=== PATIENT | male | born 1990 ===

== ENCOUNTER 2017-12-09 08:44 | Observation (INO) | payer BC ==
[2017-12-09 09:40] LABS: BASO % 0.5 % (0.0-2.0); EOS # 0.2 K/uL (0.0-0.7); EOS % 2.6 % (0.0-4.0); HEMOGLOBIN 15.4 g/dL (12.0-18.0); LYMPH # 1.3 K/uL (1.0-4.3); LYMPH % 20.6 % (20.0-40.0); MEAN CORPUSCULAR HEMOGLOBIN 28.6 pg (27.0-31.0); MEAN CORPUSCULAR HGB CONC 34.5 g/dL (33.0-37.0); MEAN PLATELET VOLUME 9.1 fl (7.2-11.7); MONO # 0.5 K/uL (0.0-0.8); MONO % 7.5 % (0.0-10.0); NEUT # 4.4 K/uL (1.8-7.0); NEUT % 68.8 % (50.0-75.0); RBC 5.39 Mil/uL (4.40-5.90); RED CELL DISTRIBUTION WIDTH 14.7 % (11.5-14.5); WHITE BLOOD COUNT 6.4 K/uL (4.8-10.8)
[2017-12-09 09:48] LABS: ALB/GLOB RATIO 1.2 (1.0-2.1); ALBUMIN 4.3 g/dL (3.5-5.0); ALT/SGPT 53 U/L (21-72); AST/SGOT 25 U/L (17-59); BLOOD UREA NITROGEN 17 mg/dl (9-20); CALCIUM 9.9 mg/dL (8.4-10.2); GFR NON-AFRICAN AMERICAN > 60
[2017-12-09 10:56] VITALS: BMI 34.4
[2017-12-09] MEDS ORDERED: Tdap Vaccine 0.5 ml Vial (10-64 yrs) IM ONE (12:04)
[2017-12-09] MEDS ORDERED: Dextrose 5%/0.45% NS 1,000 ML IV SCH (12:45)
--- NOTE | 2017-12-09 13:51 | CP.PCM.HP ---
History of Present Illness - History of Present Illness History of Present Illness: Hand Surgery: Dr. Nur Pt is a 27M with no PMHx who presents to [facility] with complaints of R hand pain and swelling x 3 days. Pt states that he was moving some heavy glass on Friday when it fell out of his hands and lacerated his R fifth digit. He states the cut was small but deep, however he applied some pressure to stop the bleeding and it got better.Yesterday, pt tripped and tried to stop the fall with his R hand by grabbing a tree branch. He states he felt a sharp pain in the same finger. Overnight the pain got worse with increased swelling and pt was unable to fully bend his 5th digit so he came to the ER. He admits to having a fracture in the same 5th digit 5 yrs ago which required pinning. In the ER, pt had an X-ray of his R hand and hand surgery called to evaluate. Currently, he is resting comfortably. States his pain is located along the 5th digit of the R hand extending down the ulnar side. He states he is able to move all his fingers but can't fully bend his 5th digit. Denies any other complaints at this time. Denies fevers/chills, chest pain or SOB. PMHx: denies PSHx: pinning of R 5th digit fracture SocialHx: denies smoking/drugs, social EtOH NKDA Present on Admission - Present on Admission Any Indicators Present on Admission: No Review of Systems - Review of Systems All systems: reviewed and no additional remarkable complaints except (as per HPI) Past Patient History - Past Social History Smoking Status: Never Smoked Alcohol: Social Drugs: Denies - PSYCHIATRIC Hx Substance Use: No - SURGICAL HISTORY Hx Surgeries: Yes - ANESTHESIA Hx Anesthesia: No Meds Allergies/Adverse Reactions: Allergies Allergy/AdvReac Type Severity Reaction Status Date / Time No Known Allergies Allergy Verified 12/09/17 09:12 Physical Exam - Constitutional Appears: Well, No Acute Distress - Head Exam Head Exam: ATRAUMATIC, NORMOCEPHALIC - Eye Exam Eye Exam: Normal appearance - ENT Exam ENT Exam: Mucous Membranes Moist - Respiratory Exam Respiratory Exam: NORMAL BREATHING PATTERN - Cardiovascular Exam Cardiovascular Exam: RRR - GI/Abdominal Exam GI & Abdominal Exam: Soft - Extremities Exam Additional comments: R hand: minimal swelling noted along the base of the 5th digit, small healed laceration scar noted without any erythema, fluctuance or induration on the volar aspect at the base. Decreased active flexion/extension of the PIP joint of 5th digit, and tenderness on passive extension. No sensory deficits noted. Remainder of the exam normal. 2+ distal pulses b/l - Neurological Exam Neurological exam: Alert, Oriented x3 - Skin Skin Exam: Dry, Warm Results - Vital Signs Recent Vital Signs: Last Vital Signs Temp 97.1 F L 12/09/17 09:15 Pulse 86 12/09/17 09:15 Resp 18 12/09/17 09:15 BP 137/87 12/09/17 09:15 Pulse Ox 100 12/09/17 09:15 - Labs Result Diagrams: 12/09/17 09:30 12/09/17 09:30 Labs: Laboratory Results - last 24 hr 12/09/17 12/09/17 09:30 09:30 WBC 6.4 RBC 5.39 Hgb 15.4 Hct 44.7 MCV 83.0 MCH 28.6 MCHC 34.5 RDW 14.7 H Plt Count 181 MPV 9.1 Neut % (Auto) 68.8 Lymph % (Auto) 20.6 [place] % (Auto) 7.5 Eos % (Auto) 2.6 Baso % (Auto) 0.5 Neut # (Auto) 4.4 Lymph # (Auto) 1.3 [place] # (Auto) 0.5 Eos # (Auto) 0.2 Baso # (Auto) 0.0 Sodium 140 Potassium 4.7 Chloride 105 Carbon Dioxide 31 H Anion Gap 9 L BUN 17 Creatinine 0.9 Est GFR ( Amer) > 60 Est GFR (Non-Af Amer) > 60 Random Glucose 95 Calcium 9.9 Total Bilirubin 0.4 AST 25 ALT 53 Alkaline Phosphatase 94 Total Protein 7.8 Albumin 4.3 Globulin 3.5 Albumin/Globulin Ratio 1.2 - Imaging and Cardiology R hand X-ray Status: Image reviewed by me Assessment & Plan - Assessment and Plan (Free Text) Assessment: 27M with injury to the R hand, 5th digit. r/o fracture vs tendon injury Plan: - admit for observation - IV ABX Unasyn & Vanc - Keep NPO - Keep R hand/arm elevated - Dr. Nur to evaluate and assess need for OR James
--- NOTE | 2017-12-09 14:04 | RAD ---
PROCEDURE: Right hand and 5th digit radiographs. HISTORY: Evaluate for 5th digit foreign body COMPARISON: None. FINDINGS: BONES: No acute fracture. JOINTS: Remarkable. SOFT TISSUES: Normal. OTHER FINDINGS: None. IMPRESSION: No demonstrated fracture, dislocation or evidence of radiopaque foreign body.
[2017-12-10] MEDS: Sodium Chloride 0.9% 1,000 ML IV SCH ×3 (01:15→09:24)
[2017-12-10] MEDS ORDERED: Gadodiamide 287 MG/ML VIAL (15ML) IV ONE (10:51)
--- NOTE | 2017-12-10 10:52 | CP.PCM.PN ---
Subjective - Date & Time of Evaluation Date of Evaluation: 12/10/17 Time of Evaluation: 10:48 - Subjective Subjective: Hand Surgery: Dr. Nur Pt seen and examined. No acute overnight events. Pt states he feels ok this morning and continues to have some pain around his R pinky finger. He denies any other complaints. Denies fevers/chills. Objective - Vital Signs/Intake and Output Vital Signs (last 24 hours): Temp Pulse Resp BP Pulse Ox 98.3 F 81 20 125/80 99 12/10/17 08:19 12/10/17 08:19 12/10/17 08:19 12/10/17 08:19 12/10/17 08:19 - Medications Medications: Current Medications Acetaminophen (Tylenol 325mg Tab) 650 mg PO Q4 PRN PRN Reason: Pain, Mild (1-3) Last Admin: 12/09/17 17:18 Dose: 650 mg Ampicillin Sodium/Sulbactam (Sodium 3 gm/ Sodium Chloride) 100 mls @ 100 mls/hr IVPB Q6 JAMAR; Protocol Last Admin: 12/10/17 09:24 Dose: 100 mls/hr Dextrose/Sodium Chloride (Dextrose 5%/0.45% Ns 1000 Ml) 1,000 mls @ 125 mls/hr IV .Q8H JAMAR Stop: 12/10/17 12:40 Sodium Chloride (Sodium Chloride 0.9%) 1,000 mls @ 125 mls/hr IV .Q8H JAMAR Stop: 12/10/17 17:03 Last Admin: 12/10/17 09:24 Dose: 125 mls/hr Tramadol HCl (Ultram) 50 mg PO Q6 PRN PRN Reason: Pain, moderate (4-7) - Labs Labs: 12/09/17 09:30 12/09/17 09:30 - Constitutional Appears: Well, No Acute Distress - Head Exam Head Exam: ATRAUMATIC, NORMOCEPHALIC - Eye Exam Eye Exam: Normal appearance - ENT Exam ENT Exam: Mucous Membranes Moist - Respiratory Exam Respiratory Exam: NORMAL BREATHING PATTERN - Cardiovascular Exam Cardiovascular Exam: RRR - GI/Abdominal Exam GI & Abdominal Exam: Soft - Extremities Exam Additional comments: R hand with swelling around the base of the 5th digit, +ttp on passive and active extension > flexion. - Neurological Exam Neurological Exam: Alert, Awake, Oriented x3 - Skin Skin Exam: Dry, Warm Assessment and Plan - Assessment and Plan (Free Text) Assessment: 27M with R 5th digit injury r/o tendon injury Plan: - f/u MRI to r/o tendon injury - Keep NPO in case pt needs OR intervention - pain management - IV ABX - d/w Dr. Boom Ramirez
[2017-12-11] MEDS ORDERED: Povidone Iodine Topical 10% Sol ONE (08:41)
--- NOTE | 2017-12-11 10:35 | CP.PCM.PN ---
Subjective - Date & Time of Evaluation Date of Evaluation: 12/11/17 Time of Evaluation: 10:33 - Subjective Subjective: Hand Surgery: Dr. Nur Pt seen and examined. No acute overnight events. States he is feeling a lot better but continues to have pain in the R 5th digit brianne around the base. Denies any fevers/chills. Tolerating diet/ambulating. Objective - Vital Signs/Intake and Output Vital Signs (last 24 hours): Temp Pulse Resp BP Pulse Ox 97.8 F 66 20 137/83 97 12/11/17 08:47 12/11/17 08:47 12/11/17 08:47 12/11/17 08:47 12/11/17 08:47 - Medications Medications: Current Medications Acetaminophen (Tylenol 325mg Tab) 650 mg PO Q4 PRN PRN Reason: Pain, Mild (1-3) Last Admin: 12/09/17 17:18 Dose: 650 mg Ampicillin Sodium/Sulbactam (Sodium 3 gm/ Sodium Chloride) 100 mls @ 100 mls/hr IVPB Q6 JAMAR; Protocol Last Admin: 12/11/17 09:34 Dose: 100 mls/hr Vancomycin HCl 1 gm/ Sodium (Chloride) 250 mls @ 166.667 mls/hr IVPB Q12H JAMAR; Protocol Last Admin: 12/11/17 02:30 Dose: 166.667 mls/hr Tramadol HCl (Ultram) 50 mg PO Q6 PRN PRN Reason: Pain, moderate (4-7) - Labs Labs: 12/09/17 09:30 12/09/17 09:30 - Constitutional Appears: Well, No Acute Distress - Head Exam Head Exam: ATRAUMATIC, NORMOCEPHALIC - ENT Exam ENT Exam: Mucous Membranes Moist - Respiratory Exam Respiratory Exam: NORMAL BREATHING PATTERN - Cardiovascular Exam Cardiovascular Exam: RRR - GI/Abdominal Exam GI & Abdominal Exam: Soft - Extremities Exam Additional comments: R hand with swelling around the base of the 5th digit, +ttp on passive and activ e extension > flexion. +Kanavel's sign - Neurological Exam Neurological Exam: Alert, Awake, Oriented x3 - Skin Skin Exam: Dry, Warm Assessment and Plan - Assessment and Plan (Free Text) Assessment: 27M with flexor tenosynovitis s/p laceration/injury to R 5th digit Plan: - bedside I&D of the flexor tendon - cont IV ABX for one more day - plan to DC tomorrow with PO ABX - Keep R hand elevated - d/w Dr. Boom Ramirez
--- NOTE | 2017-12-11 10:55 | PCM.SURG1 ---
Surgeon's Initial Post Op Note - Surgeon's Notes Surgeon: Dr. Nur Channel Rebuilder: Dr. Ramirez PGY-3 Type of Anesthesia: Local Pre-Operative Diagnosis: R 5th digit flexor tenosynovitis Operative Findings: Informed consent was obtained & time out was performed with the nurse in the room. 5cc of 0.25% Marcaine was used to perform a digital block of th 5th digit. A small 2mm transverse incision was made on the flexor side of the MCP & PIP joints down to the tendon using the #15 blade. Once the tendon was visuliazed, the tendon sheath was incised vertically using the #15 blade as well as blunt disection with the clamp. Small amount of perulent fluid was obtained from the PIP joint and cultured. Both incisions were packed with 1/4 inch iodoform packing & clean dressing applied. Pt tolerated the procedure well. Post-Operative Diagnosis: Same Operation Performed: Incision & Drainage of flexor tendon R 5th digit Specimen/Specimens Removed: none Estimated Blood Loss: EBL {In ML}: 0 Blood Products Given: N/A Drains Used: No Drains Post-Op Condition: Good Date of Surgery/Procedure: 12/11/17 Time of Surgery/Procedure: :30
[2017-12-11] MEDS ORDERED: Pneumococcal 23-Valent Vaccine IM ONE (11:47)
[2017-12-11] MEDS ORDERED: Influenza Vaccine 60 MCG/0.5 ML SYR (3 yr & up) IM ONE (11:48)
--- NOTE | 2017-12-11 15:08 | MRI ---
Date of service: 12/10/2017 PROCEDURE: RIGHT HAND MRI with and without Contrast 12/10/2017. HISTORY: Glass injury/fall, eval for tendon injury [id number] COMPARISON: Right hand radiographs 12/09/2017. TECHNIQUE: Multiplanar multisequential MR technique segment applied to the right hand including but not limited to fat-suppressed T1 weighted imaging prior to and following the intravenous administration of 23 cc of Omniscan gadolinium. FINDINGS: There is prominent edema identified in the deep medial right hand soft tissues including the small digit which converge to involve the medial distal portion of the upper mid carpal tunnel as well. Fluid surrounds the 5th flexor digitorum longus and brevis tendons minimally involves the proximal segments of the 3rd and 4th flexor digitorum longus tendons as well. Following intravenous gadolinium striation, enhancement is seen in the same distribution but is particularly prominent at the 5th flexor digitorum tendons and is compatible with tenosynovitis. Extensor tendons appear unremarkable diffusely. A tear of the right 5th flexor digitorum tendon complex is not identified definitively common or any other tendon throughout the right hand. Collateral ligaments throughout the interphalangeal joints as well as the metacarpal phalangeal joints appear intact without definite acute tear. Edema extends into the local subcutaneous fat cephalad to the thenar eminence (dorsal and volar distributions) and primarily extends into the volar local soft tissues throughout the small finger compatible with cellulitis There is no definite matter signal change or cortical erosion to suggest an osteomyelitis at this time. No definite signal defect dephasing to suggest retained ferromagnetic foreign body. IMPRESSION: No definite osteomyelitis appreciated. Tenosynovitis is seen to affect the 5th flexor digitorum tendons including longus and brevis segments as well as the proximal segments of the 3rd and 4th flexor digitorum longus segments immediately above the carpal tunnel. Inflammatory changes are also seen enhancing within the proximal to mid carpal tunnel medially as described above. Definitive abscess appreciated. Cellulitis changes are as discussed above primarily affecting the right 5th digit. No definite signal defect dephasing to suggest retained ferromagnetic foreign body. Other types of foreign bodies, including glass, may not be captured by MR.
[2017-12-12 08:47] VITALS: BP 148/76; PULSE 69; RESP 18; TEMP 98.3; O2SAT 98
--- NOTE | 2017-12-12 10:30 | CP.PCM.DIS ---
Provider - Provider Date of Admission: 12/09/17 12:25 Attending physician: Severino Nur MD Time Spent in preparation of Discharge (in minutes): 40 Diagnosis - Discharge Diagnosis (1) Tenosynovitis of finger Status: Acute Hospital Course - Lab Results Lab Results: Micro Results 12/11/17 10:50 Hand - Right Gram Stain - Final Most Recent Lab Values WBC 6.4 K/uL (4.8-10.8) 12/09/17 09:30 RBC 5.39 Mil/uL (4.40-5.90) 12/09/17 09:30 Hgb 15.4 g/dL (12.0-18.0) 12/09/17 09:30 Hct 44.7 % (35.0-51.0) 12/09/17 09:30 MCV 83.0 fl (80.0-94.0) 12/09/17 09:30 MCH 28.6 pg (27.0-31.0) 12/09/17 09:30 MCHC 34.5 g/dL (33.0-37.0) 12/09/17 09:30 RDW 14.7 % (11.5-14.5) H 12/09/17 09:30 Plt Count 181 K/uL (130-400) 12/09/17 09:30 MPV 9.1 fl (7.2-11.7) 12/09/17 09:30 Neut % (Auto) 68.8 % (50.0-75.0) 12/09/17 09:30 Lymph % (Auto) 20.6 % (20.0-40.0) 12/09/17 09:30 [place] % (Auto) 7.5 % (0.0-10.0) 12/09/17 09:30 Eos % (Auto) 2.6 % (0.0-4.0) 12/09/17 09:30 Baso % (Auto) 0.5 % (0.0-2.0) 12/09/17 09:30 Neut # (Auto) 4.4 K/uL (1.8-7.0) 12/09/17 09:30 Lymph # (Auto) 1.3 K/uL (1.0-4.3) 12/09/17 09:30 [place] # (Auto) 0.5 K/uL (0.0-0.8) 12/09/17 09:30 Eos # (Auto) 0.2 K/uL (0.0-0.7) 12/09/17 09:30 Baso # (Auto) 0.0 K/uL (0.0-0.2) 12/09/17 09:30 Sodium 140 mmol/l (132-148) 12/09/17 09:30 Potassium 4.7 MMOL/L (3.6-5.0) 12/09/17 09:30 Chloride 105 mmol/L (98-107) 12/09/17 09:30 Carbon Dioxide 31 mmol/L (22-30) H 12/09/17 09:30 Anion Gap 9 (10-20) L 12/09/17 09:30 BUN 17 mg/dl (9-20) 12/09/17 09:30 Creatinine 0.9 mg/dl (0.8-1.5) 12/09/17 09:30 Est GFR ( Amer) > 60 12/09/17 09:30 Est GFR (Non-Af Amer) > 60 12/09/17 09:30 Random Glucose 95 mg/dL (75-110) 12/09/17 09:30 Calcium 9.9 mg/dL (8.4-10.2) 12/09/17 09:30 Total Bilirubin 0.4 mg/dl (0.2-1.3) 12/09/17 09:30 AST 25 U/L (17-59) 12/09/17 09:30 ALT 53 U/L (21-72) 12/09/17 09:30 Alkaline Phosphatase 94 U/L (38-126) 12/09/17 09:30 Total Protein 7.8 G/DL (6.3-8.2) 12/09/17 09:30 Albumin 4.3 g/dL (3.5-5.0) 12/09/17 09:30 Globulin 3.5 gm/dL (2.2-3.9) 12/09/17 09:30 Albumin/Globulin Ratio 1.2 (1.0-2.1) 12/09/17 09:30 - Hospital Course Hospital Course: 27M with no PMHx who presents to [facility] with complaints of R hand pain and swelling x 3 days. Pt states that he was moving some heavy glass on Friday when it fell out of his hands and lacerated his R fifth digit. He states the cut was small but deep, however he applied some pressure to stop the bleeding and it got better.Yesterday, pt tripped and tried to stop the fall with his R hand by grabbing a tree branch. He states he felt a sharp pain in the same finger. Overnight the pain got worse with increased swelling and pt was unable to fully bend his 5th digit so he came to the ER. He admits to having a fracture in the same 5th digit 5 yrs ago which required pinning. In the ER, pt had an X-ray of his R hand and hand surgery called to evaluate. Currently, he is resting comfortably. States his pain is located along the 5th digit of the R hand extending down the ulnar side. He states he is able to move all his fingers but can't fully bend his 5th digit. Denies any other complaints at this time. Denies fevers/chills, chest pain or SOB. Dr. Nur explored the wound in the ED. Patient was amditted for tenosynovitis of right 5th finger. He was started on IV abx. The nexy day, MRI was ordered. MRI revealed tenosynovitis, cellulitis, no foreign body and no definite osteomyelitis (see full report). Patient remained on IV abx throughout the admission and finger was improving. on 12/11, Dr. Nur performed I&D at bedside. Pus was draind from MCP and PCP along with obtaining culture. Incisions were packed. The following day, packing was removed and hand was soaked in warm saline/soap. Patient was cleared for discharge on 12/12. He was instructed to do hand soaks for 15 min TID, take clindamycin 300 mg TID for 7 days and follow up with Dr. Nur on 12/16. (This is a summary of the hospital course. Please refer to EMR for more details.) - Date & Time of H&P Date of H&P: 12/09/17 Time of H&P: 13:41 Discharge Exam - Head Exam Head Exam: ATRAUMATIC, NORMOCEPHALIC - Eye Exam Eye Exam: EOMI, Normal appearance - Respiratory Exam Respiratory Exam: NORMAL BREATHING PATTERN - Cardiovascular Exam Cardiovascular Exam: REGULAR RHYTHM - GI/Abdominal Exam GI & Abdominal Exam: Soft. absent: Tenderness - Extremities Exam Extremities exam: normal capillary refill, pedal pulses present - Neurological Exam Neurological exam: Alert, Normal Gait, Oriented x3 - Psychiatric Exam Psychiatric exam: Normal Affect, Normal Mood - Skin Skin Exam: Dry, Warm Additional comments: right 5th finger with incision on MCP and PCP, mild edema - dressing clean dry intact Discharge Plan - Discharge Medications Prescriptions: Clindamycin [Cleocin] 300 mg PO TID 10 Days cap - Follow Up Plan Condition: GOOD Disposition: HOME/ ROUTINE Instructions: Laceration Repair, Wound Care (DC) Additional Instructions: Follow up with Dr. Nur in office in 5-7 days Soak hand in warm water and soap for 15 minutes 3-4 times per day Finish antibiotic prescription Ok to shower Call for Fever more than 101 or increasing pain, swelling, or drainage Referrals: Severino Nur MD [Medical Doctor] -
== END 2017-12-12 13:34 | disposition home or self-care (01) ==
LOC: H.ER 08:44 → H.ERHOLD 12:25 → INTOOBSV 12:25 → H.MEDSURG1 15:58 → INTOOBSV 16:51 → OBSVTOIN 16:51
PROVIDERS: ADMIT Surgery; ATTEND Surgery
DX: M65.9 Synovitis and tenosynovitis, unspecified (principal); S61.214A Laceration without foreign body of right ring finger without damage to nail, initial encounter; W25.XXXA Contact with sharp glass, initial encounter; Z23 Encounter for immunization
CPT/HCPCS: 26020; 73130; 73222; 80053; 85025; 87070; 90674; 99283; A9579; G0008; G0378; J0295; J7030